=== PATIENT | male | born 1965 | race Caucasian/White ===

== ENCOUNTER 2022-01-17 15:35 | Outpatient (REF) | payer BC, SELFPAY ==
[2022-01-17 18:29] LABS: PSA Diagnostic* < 0.06 ng/mL (0.10-4.00)
== END 2022-01-17 15:36 | disposition home or self-care (01) ==
LOC: NPINS 15:35
PROVIDERS: PCP Family Medicine; Visit Provider Physician Assistant Surgical
DX: Z00.00 Encounter for general adult medical examination without abnormal findings (principal); M10.9 Gout, unspecified; Z13.6 Encounter for screening for cardiovascular disorders; Z12.5 Encounter for screening for malignant neoplasm of prostate
CPT/HCPCS: 80048; 80061; 84153

== ENCOUNTER 2023-02-06 08:00 | Outpatient (CLI) | payer BC, SELFPAY | END 2023-02-06 08:01 | disposition home or self-care (01) | LOC: NFLDREF 02-07 06:10 | PROVIDERS: PCP Family Medicine; Referring Provider Family Medicine; Visit Provider Family Medicine | DX: Z00.00 Encounter for general adult medical examination without abnormal findings (principal); Z12.5 Encounter for screening for malignant neoplasm of prostate; Z13.1 Encounter for screening for diabetes mellitus; Z13.220 Encounter for screening for lipoid disorders; Z13.6 Encounter for screening for cardiovascular disorders | CPT/HCPCS: 80048; 80061; 84153 ==

== ENCOUNTER 2023-02-15 09:31 | Outpatient (CLI) | payer BC, SELFPAY | END 2023-02-15 09:32 | disposition home or self-care (01) | LOC: LKVREF 09:34 | PROVIDERS: PCP Family Medicine; Visit Provider Family Medicine | DX: Z00.00 Encounter for general adult medical examination without abnormal findings (principal); M10.9 Gout, unspecified | CPT/HCPCS: 84550 ==

== ENCOUNTER 2023-10-30 15:19 | Outpatient (CLI) | payer BC, SELFPAY | END 2023-10-30 15:20 | disposition home or self-care (01) | PROVIDERS: PCP Family Medicine; Visit Provider Physician Assistant Medical | DX: Z01.818 Encounter for other preprocedural examination (principal); R68.82 Decreased libido; M10.9 Gout, unspecified; Z12.5 Encounter for screening for malignant neoplasm of prostate; Z11.3 Encounter for screening for infections with a predominantly sexual mode of transmission; Z11.59 Encounter for screening for other viral diseases; Z13.6 Encounter for screening for cardiovascular disorders; Z13.1 Encounter for screening for diabetes mellitus | CPT/HCPCS: 80053; 80061; 84403; 84443; 84550; 86703; 86803; G0103 ==